=== PATIENT | female | born 1975 | race Caucasian/White ===

== ENCOUNTER 2018-03-21 21:27 | Emergency (ER) | payer MEDICAID ==
[~2018-03-21] VITALS: Ht 167.6 cm; Wt 60.8 kg
[2018-03-21 21:33] VITALS: Ht 167.6 cm; Wt 60.8 kg
[2018-03-22 01:30] VITALS: BP 112/84
== END 2018-03-22 01:30 | disposition home or self-care (01) ==
LOC: ED 21:27
DX: K22.4 Dyskinesia of esophagus (principal); K21.9 Gastro-esophageal reflux disease without esophagitis
CPT/HCPCS: J1885; Q0092